=== PATIENT | male | born 1990 | race American Indian/Alaskan Native ===

== ENCOUNTER 2022-07-28 23:32 | Emergency (ER) | payer MEDICAID ==
[~2022-07-28] VITALS: Ht 188 cm; Wt 84.5 kg
[~2022-07-28 23:32] MED LIST: CLIN-12 PO
[2022-07-28 23:52] VITALS: BP 157/103
== END 2022-07-29 03:34 | disposition left against medical advice (07) ==
LOC: ER 23:33
DX: J02.9 Acute pharyngitis, unspecified (principal); Z53.21 Procedure and treatment not carried out due to patient leaving prior to being seen by health care provider

== ENCOUNTER 2022-08-16 14:10 | Emergency (ER) | payer MEDICAID ==
[~2022-08-16] VITALS: Ht 182.9 cm; Wt 90.0 kg
[2022-08-16 15:17] LABS: BASOPHILS # (AUTO) 0.1 X10'3 (0-0.2); BASOPHILS % (AUTO) 1.1 % (0-1); EOSINOPHILS # (AUTO) 0.1 X10'3 (0-0.9); EOSINOPHILS % (AUTO) 1.1 % (0-6); HEMATOCRIT 37.4 % (42.0-52.0); HEMOGLOBIN 12.6 g/dl (14.0-17.9); LYMPHOCYTES # (AUTO) 1.8 X10'3 (1.1-4.8); LYMPHOCYTES % (AUTO) 18.5 % (21-51); MEAN CORPUSCULAR HEMOGLOBIN 28.2 PG (27.0-31.0); MEAN CORPUSCULAR HGB CONC 33.6 g/dL (33.0-36.5); MEAN CORPUSCULAR VOLUME 83.9 FL (78-98); MEAN PLATELET VOLUME 8.2 FL (7.4-10.4); MONOCYTES # (AUTO) 0.8 X10'3 (0-0.9); MONOCYTES % (AUTO) 8.5 % (2-12); NEUTROPHILS # (AUTO) 6.9 X10'3 (1.8-7.7); NEUTROPHILS % (AUTO) 70.8 % (42-75); PLATELET COUNT 315 X10'3 (140-440); RED BLOOD COUNT 4.46 X10'6 (4.70-6.10); RED CELL DISTRIBUTION WIDTH 13.3 % (11.5-14.5); WHITE BLOOD COUNT 9.7 X10'3 (4.5-11.0)
[2022-08-16 15:41] LABS: ALANINE AMINOTRANSFERASE 26 U/L (12-78); ALBUMIN 3.6 G/DL (3.4-5.0); ALKALINE PHOSPHATASE 101 IU/L (46-116); ANION GAP 8 (8-16); ASPARTATE AMINO TRANSFERASE 27 U/L (10-37); BILIRUBIN,TOTAL 0.5 MG/DL (0.1-1.0); BLOOD UREA NITROGEN 12 MG/DL (7-18); BUN/CREATININE RATIO 18.2 (5.4-32.0); CALCIUM 8.7 MG/DL (8.5-10.1); CHLORIDE 102 MMOL/L (99-107); CREATININE 0.66 MG/DL (0.60-1.10); ETHANOL < 0.010 GM/DL (0.0-0.010); GLUCOSE 98 MG/DL (70-104); POTASSIUM 3.5 MMOL/L (3.5-5.1); SODIUM 138 MMOL/L (135-145); TOTAL CARBON DIOXIDE 28.1 MMOL/L (24-32); TOTAL PROTEIN 7.3 G/DL (6.4-8.2); eGFR > 90 ML/MIN
[2022-08-16 16:17] LABS: CLARITY,URINE CLEAR (Clear); COLOR,URINE YELLOW (Yellow); GLUCOSE, URINE NEGATIVE (Neg); KETONES,URINE TRACE mg/dl (Neg); LEUKOCYTE ESTERASE ,URINE NEGATIVE (Neg); NITRITES, URINE NEGATIVE (Neg); OCCULT BLOOD,URINE NEGATIVE (Neg); PH,URINE 7.5 (4.8-8.0); PROTEIN,URINE NEGATIVE (Neg)
[2022-08-16 16:18] LABS: UA COLLECTION TYPE VOIDED
[2022-08-16 16:44] LABS: URINE AMPHETAMINE SCREEN POSITIVE (Neg); URINE BARBITUATE SCREEN NEGATIVE (Neg); URINE BENZODIAZEPINES SCREEN NEGATIVE (Neg); URINE CANNABINOID SCREEN POSITIVE (Neg); URINE COCAINE SCREEN NEGATIVE (Neg); URINE METHADONE SCREEN NEGATIVE (Neg); URINE OPIATE SCREEN NEGATIVE (Neg); URINE PHENCYCLIDINE SCREEN NEGATIVE (Neg)
--- NOTE | 2022-08-16 21:12 | NUR ---
packet faxed at 2100
--- NOTE | 2022-08-16 22:58 | NUR ---
Pt arrived on floor from main ER at 2100 via gurney transfered independantly to bed. Pt is oriented x2 at least. He is either confused or does not want to share information about his situation and why he is here. His conversation is tangential and it seems difficult for him to recount events in a chronological order. He admits to occasional alcohol use, frequent Marijuana and Meth use.(+ for meth on admit) He denies prior Mental Health history initially then talks about being treated for depresion. He denies SI or A/H then says he hears God talking to him and asking him to sacrifice himself. Has a red painful looking lump above his right ankle says he has a lump on his left hip. Unable to see or palpate a lump. He is pleasant and cooperative with admit denies home meds. After eating 100% of meal tray went to sleep, sleeping at this time.
--- NOTE | 2022-08-17 01:10 | NUR ---
Pt sleeping resp even unlabored.
--- NOTE | 2022-08-17 04:49 | NUR ---
Awakened for VS went immediately back to sleep.
--- NOTE | 2022-08-17 07:43 | NUR ---
PACKET FAXED TO [facility]
--- NOTE | 2022-08-17 08:03 | NUR ---
Patient sleeping since arrival at 0600. Appears to be comfortable.
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
[2022-08-17] MEDS: acetaminophen 325mg tablet PO PRN ×2 (08:41→19:28)
--- NOTE | 2022-08-17 10:38 | NUR ---
Patient sleeping in bed. Appears comfortable at this time.
--- NOTE | 2022-08-17 10:50 | NUR ---
[facility] Worker at patient's bedside interviewing the patient. After interview completed, the [facility] Worker informed that patient does not meet the medical necessity for a 5150 hold at this time. Patient's diagnosis is Cannabis Use Disorder & Stimulent Use Disorder. Per [facility] worker, patient should meet with L[facility] Substance Use Navigator. Will discuss recommendations with noc shift nurse when they arrive at 1800.
--- NOTE | 2022-08-17 13:00 | NUR ---
Patient ate lunch and spoke with the patient in the next bed #20. Patient appears to know the Bed #20 and they conversed for a short period of time then fell asleep for the afternoon.
--- NOTE | 2022-08-17 15:13 | NUR ---
Patient still sleeping in bed. No behaviors throughout shift. Will continue to monitor.
--- NOTE | 2022-08-17 17:43 | NUR ---
Patient still sleeping in bed since after eating lunch. Will continue to monitor.
--- NOTE | 2022-08-17 18:25 | NUR ---
Pt sitting quietly eating dinner at change of shift.
[2022-08-17] MEDS ORDERED: amox tr/potassium clavulanate 500mg/125mg TAB PO ONE (19:50)
--- NOTE | 2022-08-17 20:28 | NUR ---
Pt made phone call to family and states he is feeling "fine." Pt is pleasant and cooperative, had a sandwich and crackers after dinner, and reports 10/10 pain in his right leg and c/o tooth pain. Pt reports an abscess tooth. Provider ordered augmentin for tooth abscess.
--- NOTE | 2022-08-17 23:30 | NUR ---
Pt laying on his left side rr even and unlabored.
--- NOTE | 2022-08-18 02:15 | NUR ---
Pt laying quietly in bed awake. RR even and unlabored
--- NOTE | 2022-08-18 04:10 | NUR ---
pt laying on his left side asleep rr even and unlabored
--- NOTE | 2022-08-18 05:33 | NUR ---
Pt is laying on his right side asleep rr even and unlabored
[2022-08-18 05:43] VITALS: BP 119/78
--- NOTE | 2022-08-18 06:30 | NUR ---
Pt asleep in bed on his right side, noted rise and fall of chest. No distress noted.
[2022-08-18] MEDS ORDERED: amox tr/potassium clavulanate 500mg/125mg TAB PO SCH (08:30)
--- NOTE | 2022-08-18 08:30 | NUR ---
Pt sleeping on his back, noted rise and fall of chest. No distress noted.
--- NOTE | 2022-08-18 10:26 | NUR ---
1:1 done at bedside and medications administered. Pt cooperative with assessment. Denies SI. States he hears a voice telling him to "read." Does not seem bothered by the voice. Prune juice given for c/o constipation. Pt awaiting to be seen by subtance advocator.
--- NOTE | 2022-08-18 11:33 | NUR ---
Pt had a medium sized BM. He is now sitting in his bed with eyes open conversing with staff.
--- NOTE | 2022-08-18 12:32 | NUR ---
Pt eating lunch, no distress noted.
--- NOTE | 2022-08-18 14:15 | NUR ---
Linnette, substance abuse advocator speaking with pt. about outpatient resources r/t drug/alcohol abuse.
[2022-08-18] MEDS ORDERED: AMOX-115 PO (14:18)
--- NOTE | 2022-08-18 15:18 | NUR ---
Met with patient in regards to substance use and to see if patient was interested in resources for treatment options. Patient is interested in treatment. I gave patient [facility] number to call and get process started. Patient mentioned having a provider at [facility] and he was going to go and see her to have her help him further.
== END 2022-08-18 14:33 | disposition home or self-care (01) ==
LOC: ER 14:10
DX: R45.851 Suicidal ideations (principal); Z20.822 Contact with and (suspected) exposure to COVID-19
CPT/HCPCS: 36415; 80053; 80305; 80320; 81003; 84443; 85025; 87811; 99285

== ENCOUNTER 2022-09-16 12:59 | Emergency (ER) | payer MEDICAID ==
[~2022-09-16] VITALS: Ht 188 cm; Wt 84.1 kg
[2022-09-16 13:07] VITALS: BP 140/93
== END 2022-09-16 13:35 ==
LOC: ER 12:59
DX: R44.0 Auditory hallucinations (principal); F20.0 Paranoid schizophrenia; F15.10 Other stimulant abuse, uncomplicated; Z79.899 Other long term (current) drug therapy
CPT/HCPCS: 99283

== ENCOUNTER 2022-09-18 00:32 | Emergency (ER) | payer MEDICAID ==
[~2022-09-18] VITALS: Ht 177.8 cm; Wt 90.0 kg
[2022-09-18 00:37] VITALS: BP 125/88
[2022-09-18 00:56] LABS: BASOPHILS # (AUTO) 0.1 X10'3 (0-0.2); BASOPHILS % (AUTO) 0.5 % (0-1); EOSINOPHILS % (AUTO) 0.3 % (0-6); HEMATOCRIT 39.8 % (42.0-52.0); HEMOGLOBIN 13.7 g/dl (14.0-17.9); LYMPHOCYTES # (AUTO) 2.2 X10'3 (1.1-4.8); LYMPHOCYTES % (AUTO) 14.3 % (21-51); MEAN CORPUSCULAR HGB CONC 34.4 g/dL (33.0-36.5); MEAN CORPUSCULAR VOLUME 84.3 FL (78-98); MEAN PLATELET VOLUME 8.2 FL (7.4-10.4); MONOCYTES % (AUTO) 6.8 % (2-12); NEUTROPHILS # (AUTO) 11.8 X10'3 (1.8-7.7); NEUTROPHILS % (AUTO) 78.1 % (42-75); PLATELET COUNT 299 X10'3 (140-440); RED BLOOD COUNT 4.72 X10'6 (4.70-6.10); RED CELL DISTRIBUTION WIDTH 14.1 % (11.5-14.5); WHITE BLOOD COUNT 15.1 X10'3 (4.5-11.0)
[2022-09-18 01:12] LABS: ALANINE AMINOTRANSFERASE 28 U/L (12-78); ALBUMIN/GLOBULIN RATIO 1.1 (1.1-1.5); ALKALINE PHOSPHATASE 124 IU/L (46-116); ANION GAP 8 (8-16); ASPARTATE AMINO TRANSFERASE 20 U/L (10-37); BILIRUBIN,TOTAL 0.5 MG/DL (0.1-1.0); BLOOD UREA NITROGEN 14 MG/DL (7-18); CALCIUM 9.2 MG/DL (8.5-10.1); CHLORIDE 101 MMOL/L (99-107); GLUCOSE 90 MG/DL (70-104); SODIUM 138 MMOL/L (135-145); TOTAL PROTEIN 7.8 G/DL (6.4-8.2); eGFR > 90 ML/MIN
[2022-09-18] MEDS ORDERED: acetaminophen 325mg tablet PO ONE (01:35)
== END 2022-09-18 02:15 | disposition home or self-care (01) ==
LOC: ER 00:32
DX: R51.9 Headache, unspecified (principal); M25.512 Pain in left shoulder; R41.0 Disorientation, unspecified; R07.89 Other chest pain; F15.90 Other stimulant use, unspecified, uncomplicated; Z72.89 Other problems related to lifestyle; Z79.899 Other long term (current) drug therapy
CPT/HCPCS: 36415; 71045; 80053; 85025; 93005; 99285

== ENCOUNTER 2022-09-19 00:02 | Emergency (ER) | payer MEDICAID ==
[~2022-09-19] VITALS: Ht 182.9 cm; Wt 79.5 kg
[2022-09-19 00:10] VITALS: BP 110/75
== END 2022-09-19 00:30 | disposition home or self-care (01) ==
LOC: ER 00:05
DX: M79.604 Pain in right leg (principal); F15.20 Other stimulant dependence, uncomplicated; M79.89 Other specified soft tissue disorders
CPT/HCPCS: 99281

== ENCOUNTER 2022-11-29 02:43 | Emergency (ER) | payer MEDICAID ==
[~2022-11-29] VITALS: Ht 185.4 cm; Wt 81.8 kg
[2022-11-29] MEDS ORDERED: normal saline 1000ML IV soln IVB ONE (03:30)
[2022-11-29 03:59] LABS: BASOPHILS # (AUTO) 0.1 X10'3 (0-0.2); BASOPHILS % (AUTO) 1.8 % (0-1); EOSINOPHILS # (AUTO) 0.2 X10'3 (0-0.9); EOSINOPHILS % (AUTO) 2.7 % (0-6); HEMATOCRIT 35.8 % (42.0-52.0); HEMOGLOBIN 12.3 g/dl (14.0-17.9); LYMPHOCYTES # (AUTO) 2.5 X10'3 (1.1-4.8); LYMPHOCYTES % (AUTO) 39.2 % (21-51); MEAN CORPUSCULAR HEMOGLOBIN 29.3 PG (27.0-31.0); MEAN CORPUSCULAR HGB CONC 34.5 g/dL (33.0-36.5); MEAN CORPUSCULAR VOLUME 85.1 FL (78-98); MEAN PLATELET VOLUME 8.9 FL (7.4-10.4); MONOCYTES # (AUTO) 0.5 X10'3 (0-0.9); MONOCYTES % (AUTO) 8.4 % (2-12); NEUTROPHILS # (AUTO) 3.1 X10'3 (1.8-7.7); NEUTROPHILS % (AUTO) 47.9 % (42-75); PLATELET COUNT 224 X10'3 (140-440); RED BLOOD COUNT 4.21 X10'6 (4.70-6.10); RED CELL DISTRIBUTION WIDTH 13.9 % (11.5-14.5); WHITE BLOOD COUNT 6.5 X10'3 (4.5-11.0)
[2022-11-29 04:13] LABS: ALANINE AMINOTRANSFERASE 15 U/L (12-78); ALBUMIN 3.7 G/DL (3.4-5.0); ALBUMIN/GLOBULIN RATIO 1.2 (1.1-1.5); ALKALINE PHOSPHATASE 76 IU/L (46-116); ANION GAP 6 (8-16); ASPARTATE AMINO TRANSFERASE 10 U/L (10-37); BILIRUBIN,TOTAL 0.3 MG/DL (0.1-1.0); BLOOD UREA NITROGEN 15 MG/DL (7-18); BUN/CREATININE RATIO 18.3 (10.0-20.0); CALCIUM 8.6 MG/DL (8.5-10.1); CHLORIDE 107 MMOL/L (99-107); CREATININE 0.82 MG/DL (0.60-1.10); ETHANOL < 0.010 GM/DL (0.0-0.010); GLUCOSE 94 MG/DL (70-104); POTASSIUM 3.3 MMOL/L (3.5-5.1); SODIUM 143 MMOL/L (135-145); TOTAL CARBON DIOXIDE 29.7 MMOL/L (24-32); TOTAL PROTEIN 6.7 G/DL (6.4-8.2); eGFR > 90 ML/MIN
[2022-11-29 04:21] LABS: URINE AMPHETAMINE SCREEN POSITIVE (Neg); URINE BARBITUATE SCREEN NEGATIVE (Neg); URINE BENZODIAZEPINES SCREEN POSITIVE (Neg); URINE CANNABINOID SCREEN POSITIVE (Neg); URINE COCAINE SCREEN NEGATIVE (Neg); URINE METHADONE SCREEN NEGATIVE (Neg); URINE OPIATE SCREEN NEGATIVE (Neg); URINE PHENCYCLIDINE SCREEN NEGATIVE (Neg)
[2022-11-29 04:42] LABS: PLATELET ESTIMATE NORMAL; TOTAL CELLS COUNTED 100
--- NOTE | 2022-11-29 05:13 | NUR ---
PT SITTING UP IN BED EATING AND DRINKING
--- NOTE | 2022-11-29 05:40 | NUR ---
PT ROAD TESTED, TWO CIRCUITS AROUND THE ER. STEADY GAIT. PT IS NOW SITTING AT EDGE OF BED DRINKING WATER AND CONVERSING APPROPRIATELY
[2022-11-29 05:52] VITALS: BP 123/70
== END 2022-11-29 05:54 | disposition home or self-care (01) ==
LOC: ER 02:43
DX: R41.82 Altered mental status, unspecified (principal); F19.10 Other psychoactive substance abuse, uncomplicated; F15.90 Other stimulant use, unspecified, uncomplicated; F29 Unspecified psychosis not due to a substance or known physiological condition; Z72.89 Other problems related to lifestyle; Z79.899 Other long term (current) drug therapy
CPT/HCPCS: 36415; 80053; 80305; 80320; 82948; 85007; 85025; 96360; 99283; J7030; 99284

== ENCOUNTER 2023-04-07 02:36 | Emergency (ER) | payer MEDICAID ==
[~2023-04-07] VITALS: Ht 175.3 cm; Wt 75.0 kg
[2023-04-07 02:59] VITALS: BP 142/90; PULSE 90; RESP 14; TEMP 97.9; O2SAT 100
== END 2023-04-07 03:54 ==
LOC: ER 02:36
DX: R07.89 Other chest pain (principal); R06.02 Shortness of breath; R11.0 Nausea; Z79.2 Long term (current) use of antibiotics; Z72.89 Other problems related to lifestyle
CPT/HCPCS: 29125; 93005; 99283